=== PATIENT | female | born 1970 | race Caucasian/White ===

== ENCOUNTER 2016-09-13 14:23 | Emergency (ER) | payer BC ==
--- NOTE | 2016-09-13 14:42 | ERNOTE ---
Psychological HPI - General Chief Complaint: Psychiatric Problem - Immun/Allergies/Home Medications Allergies/Adverse Reactions: Allergies codeine Adverse Reaction (Verified 09/13/16 14:46) Home Medications: HOME MEDICATIONS Diphenhydramine HCl [Benadryl] 25 mg PO DAILY 09/13/16 [Last Taken Unknown] Gabapentin [Neurontin] 100 mg PO TID 09/13/16 [Last Taken Unknown] Ibuprofen [Motrin] 800 mg PO QID PRN 09/13/16 [Last Taken Unknown] Sennosides [Senokot] 2 tab PO DAILY 09/13/16 [Last Taken Unknown] oxyCODONE HCL/ACETAMINOPHEN [Percocet 5 MG/325 MG] 1 tab PO Q4H PRN 09/13/16 [ Last Taken Unknown] risperiDONE [Risperidone] 3 mg PO HS 09/13/16 [Last Taken Unknown] - History of Present Illness Narrative: This examiner is unable to elicit a history from this patient as she does not wish to communicate. Patient has a blank stare she sits in the room and when asked why she is here she states that she does not know. I asked how she is feeling she states "I feel fine" that is all the verbal communication the patient allows 4. Patient looks away and does not wish to speak at this time. history per EMS is that patient's family thought she was acting abnormally and called the EMS to bring the patient into the hospital. Recently diagnosed with schizophrenia with suicidal ideations. She been hospitalized at [facility] in [facility]. Time Seen by Provider: 09/13/16 14:32 Review of Systems - Narrative Narrative: Unable to elicit a review of systems this patient chooses not to speak to this examiner at this time. Physical Exam - Physical Exam Narrative: Vitals are stable however she does not allow me to listen to her heart and lungs or do any other exam. General Appearance: Present: other - patient has a flat affect she avoids eye contact she does not speak. Neck: Present: normal inspection Respiratory: Present: no respiratory distress ED Progress - Vital Signs Patient's Vital Signs:: I have reviewed the patient's vital signs. - Progress/Reassessment Chief Complaint: Psychiatric Problem - Transfer of Care Physician Sign Out: Nadege Anders Receiving Physician: Rick Fermin Expected Disposition: Transfer Plan - Plan Plan: This is an extremely challenging case for this examiner as the patient is not cooperating and I cannot do an effective examination. Due to the patient's affect this examiner chose to call the psychiatrist on staff, Dr. Montalvo to come evaluate the patient. Colleen marino presented to the patient's bedside and evaluated the patient and deemed the patient a danger to herself. Patient is amenable to going to an inpatient psychiatric facility which is what the psychiatrist deemed her appropriate for. He does have some symptoms and extrapyramidal symptoms from her risperidone and she will be given Benadryl 25 mg IM for these symptoms all efforts will be focused upon finding a safe placement for this patient Departure Clinical Impression: Schizophrenia Qualifiers: Schizophrenia type: unspecified Qualified Code(s): F20.9 - Schizophrenia, unspecified - Departure Condition: Fair
--- OUTSIDE RECORDS SUMMARY | 2016-09-13 15:12 | XMS REPORT | Continuity of Care Document ---
:1970 Author Organization [facility] Address [address] [place] [id number] Support Name Relationship Address Phone MIRNA MAR DO Unavailable Unavailable Unavailable MARIE MANN Unavailable [facility] [place] [address] Insurance Providers Payer Name Policy Number Subscriber Name Relationship Self Pay In [facility] Yoly Mann 18 Self / Same as Patient Advance Directives Directive Response Recorded Date/Time Do you have Advance Directive No 08/19/16 10:00pm Do you have an Advance Directive? No 08/15/16 7:16pm Chief Complaint and Reason for Visit Chief Complaint Mental Health Reason for Visit Anxiety disorder Problems Active Problems Medical Problem Onset Date Status Alcohol use Unknown Acute Altered mental status Unknown Resolved Anxiety disorder Unknown Acute Elevated CK Unknown Acute Leukocytosis, unspecified Unknown Acute Medications No known medications. Social History Query Response Start Date Stop Date Smoking Status Unknown if ever smoked Hospital Discharge Instructions No hospital discharge instructions. Plan of Care Discharge Date 08/19/16 11:58pm Disposition Home, Self-Care Condition at Discharge Improved Prescriptions See Medication Section Additional Instructions/Education You have an appointment with Bren Michael on 08/29/16 at 1:00 Return to the ED at any time if your symptoms change or worsen Functional Status No functional status results. Allergies, Adverse Reactions, Alerts No known allergies. Immunizations No immunization records. Vital Signs Acute Vital Signs Vital Response Date/Time Blood Pressure 139/67 mm Hg 08/19/2016 10:00pm Pulse Pulse Rate (adult) 76 bpm (60 - 90) 08/19/2016 10:00pm Temperature (C) 36.0 degrees C (36.0 - 37.5) 08/15/2016 12:00pm Weight (Pounds) 155 pounds 08/19/2016 10:00pm Weight (Kilograms) 68.8 kg 08/15/2016 5:00am Weight (Calculated Kg) 70.31 kilograms 08/19/2016 10:00pm Height 5 ft 7.01 in Weight 155 lb Body Mass Index 24.3 kg/m^2 Results Laboratory Results Test Name Result Units Flags Reference Collection Result Comments Date/Time Date/Time White Blood 10.760 K/uL 4.0-11.0 08/15/2016 08/15/2016 Count 4:51am 5:21am Red Blood 3.45 M/uL *L 4.20-5.20 08/15/2016 08/15/2016 Count 4:51am 5:21am Hemoglobin 10.9 g/dL *L 11.6-15.6 08/15/2016 08/15/2016 4:51am 5:21am Hematocrit 32.6 % *L 33.0-44.0 08/15/2016 08/15/2016 4:51am 5:21am Mean 95 fL 80-96 08/15/2016 08/15/2016 Corpuscular 4:51am 5:21am Volume Mean 31.6 pg 27.0-34.0 08/15/2016 08/15/2016 Corpuscular 4:51am 5:21am Hemoglobin Mean 33.4 g/dL 32.0-36.0 08/15/2016 08/15/2016 Corpuscular 4:51am 5:21am Hemoglobin Concent Red Cell 13.8 % 9.0-14.5 08/15/2016 08/15/2016 Distributio 4:51am 5:21am n Width Platelet 223 K/uL 150-450 08/15/2016 08/15/2016 Count 4:51am 5:21am Mean 7.9 fL 7.1-9.4 08/15/2016 08/15/2016 Platelet 4:51am 5:21am Volume Segmented 74.2 % 42.0-79.0 08/15/2016 08/15/2016 Neutrophils 4:51am 5:21am % Segmented 8.0 K/uL 1.8-8.0 08/15/2016 08/15/2016 Neutrophils 4:51am 5:21am # Lymphocytes 18.2 % *L 20.0-42.0 08/15/2016 08/15/2016 % 4:51am 5:21am Lymphocytes 2.0 K/uL 1.2-4.0 08/15/2016 08/15/2016 # 4:51am 5:21am Monocytes % 5.9 % 0.0-12.0 08/15/2016 08/15/2016 4:51am 5:21am Monocytes # 0.6 K/uL 0.0-1.0 08/15/2016 08/15/2016 4:51am 5:21am Eosinophils 1.4 % 0.0-5.0 08/15/2016 08/15/2016 % 4:51am 5:21am Eosinophils 0.2 K/uL 0.0-0.5 08/15/2016 08/15/2016 # 4:51am 5:21am Basophils % 0.4 % 0.0-2.0 08/15/2016 08/15/2016 4:51am 5:21am Basophils # 0.0 K/uL 0.0-0.1 08/15/2016 08/15/2016 4:51am 5:21am Differentia No No 08/15/2016 08/15/2016 l Slide 4:51am 5:21am Review Macrocytosi SLIGHT ABSENT 08/14/2016 08/14/2016 s 2:57pm 3:11pm Prothrombin 14.1 Seconds 11.8-14.5 08/13/2016 08/13/2016 Time 11:02pm 11:36pm INR 1.1 INR unit 0.8-1.2 08/13/2016 08/13/2016 Therapeutic Internation 11:02pm 11:36pm Range: 2.0 - al 4.0 Normalized Ratio CSF CLEAR CLEAR 08/14/2016 08/14/2016 Appearance 3:20pm 4:36pm CSF Color COLORLESS COLORLESS 08/14/2016 08/14/2016 3:20pm 4:36pm CSF NEGATIVE NEG 08/14/2016 08/14/2016 Xanthrochro 3:20pm 4:36pm ganga CSF RBC 5 CELLS/uL *H 0-0 08/14/2016 08/14/2016 3:20pm 4:36pm CSF WBC 1 CELLS/uL 0-5 08/14/2016 08/14/2016 3:20pm 4:36pm CSF 0 % 08/14/2016 08/14/2016 Polynuclear 3:20pm 4:36pm WBCs (%) CSF 100 % 08/14/2016 08/14/2016 Mononuclear 3:20pm 4:36pm WBCs % Blood Gas Arterial 08/14/2016 08/14/2016 Specimen 6:00am 6:11am Type Blood Gas Right Radial 08/14/2016 08/14/2016 Sample Site Artery 6:00am 6:11am Modified Positive 08/14/2016 08/14/2016 Johnathan Test 6:00am 6:11am Oxygen Ventilator 08/14/2016 08/14/2016 Mode: AC Delivery 6:00am 6:11am Tidal Volume: 400 Device PEEP: 5 Press. Support: Rate: 16 Insp. Pressure FiO2 % 30 % 08/14/2016 08/14/2016 6:00am 6:11am Blood Gas 7.386 pH units 7.350-7.450 08/14/2016 08/14/2016 pH 6:00am 6:11am Blood Gas 34.2 mm Hg *L 35.0-45.0 08/14/2016 08/14/2016 PCO2 6:00am 6:11am Blood Gas 91.8 mm Hg 80.0-100.0 08/14/2016 08/14/2016 PO2 6:00am 6:11am Blood Gas 20.1 meq/L *L 22.0-26.0 08/14/2016 08/14/2016 HCO3 6:00am 6:11am Blood Gas 21.1 meq/L *L 23.0-27.0 08/14/2016 08/14/2016 Total CO2 6:00am 6:11am Arterial -4.3 meq/L *L -2.0-2.0 08/14/2016 08/14/2016 Blood Base 6:00am 6:11am Excess Arterial 96.6 % *L 97.0-100.0 08/14/2016 08/14/2016 Bld O2 6:00am 6:11am Saturation (Measur) Arterial 15.5 mL/dL 15.0-23.0 08/14/2016 08/14/2016 Blood 6:00am 6:11am Oxygen Content Oxygen 15.8 mL/dL *L 16.0-24.0 08/14/2016 08/14/2016 Capacity 6:00am 6:11am Sodium 143 mmol/L 132-146 08/15/2016 08/15/2016 Level 4:54am 5:30am Potassium 3.1 mmol/L *L 3.6-5.0 08/15/2016 08/15/2016 Level 4:54am 5:30am Chloride 113 mmol/L *H 99-109 08/15/2016 08/15/2016 Level 4:54am 5:30am Carbon 26 mmol/L 20-31 08/15/2016 08/15/2016 Dioxide 4:54am 5:30am Level Random 76 mg/dL 65-140 08/15/2016 08/15/2016 Glucose 4:54am 5:30am Blood Urea 6 mg/dL *L 9-23 08/15/2016 08/15/2016 Nitrogen 4:54am 5:30am Creatinine 0.7 mg/dL 0.5-1.3 08/15/2016 08/15/2016 4:54am 5:30am Estimated > 60 mL/min >60 08/15/2016 08/15/2016 GFR 4:54am 5:30am (Non-Nancy n Slovenian Estimated > 60 mL/min >60 08/15/2016 08/15/2016 GFR 4:54am 5:30am () Calcium 7.4 mg/dL *L 8.6-10.0 08/15/2016 08/15/2016 Level 4:54am 5:30am Serum 299 mOsm/kg 280-305 08/13/2016 08/13/2016 Osmolality 10:46pm 10:59pm Phosphorus 2.9 mg/dL 2.4-5.1 08/15/2016 08/15/2016 Level 4:54am 5:30am Magnesium 2.0 mg/dL 1.3-2.7 08/15/2016 08/15/2016 Level 4:54am 5:30am Lactic Acid 0.9 mmol/L 0.5-1.9 08/14/2016 08/14/2016 Level 12:05pm 12:31pm Ammonia 55 umol/L 19-60 08/13/2016 08/13/2016 10:46pm 11:02pm Alanine 21 U/L 10-49 08/14/2016 08/14/2016 Aminotransf 4:00am 4:34am erase (ALT/SGPT) Aspartate 23 U/L 0-40 08/14/2016 08/14/2016 Amino 4:00am 4:34am Transf (AST/SGOT) Total 0.2 mg/dL *L 0.3-1.2 08/14/2016 08/14/2016 Bilirubin 4:00am 4:34am Alkaline 61 U/L 45-129 08/14/2016 08/14/2016 Phosphatase 4:00am 4:34am Total 5.0 g/dL *L 6.4-8.3 08/14/2016 08/14/2016 Protein 4:00am 4:34am Albumin 3.5 g/dL 3.2-4.8 08/14/2016 08/14/2016 4:00am 4:34am Creatine 1340 U/L *H 33-211 08/15/2016 08/15/2016 Kinase 4:54am 7:40am Troponin I 0.13 ng/mL *H <0.05 08/14/2016 08/14/2016 Indeterminate Range : 0.05 - 0.77 10:00am 10:30am Suspected AMI: >0.78 Test results may be altered in patients taking high dose biotin supplementation (e.g. ESRD); clinical correlation required. Call [facility] with questions. CSF Total 23.9 mg/dL 12-60 08/14/2016 08/14/2016 Floor notification that test(s) are complete called to Protein 3:20pm 4:35pm SHARLENE/ICU at 1635 08/14/16 by CHING RAMIREZ. CSF Glucose 64 mg/dL 40-80 08/14/2016 08/14/2016 3:20pm 4:35pm Thyroid 1.525 mcIU/mL 0.55-4.78 08/13/2016 08/14/2016 Stimulating 10:46pm 2:04am Hormone 3rd Gen Cortisol 30.6 mcg/dL *H 3.1-22.4 08/13/2016 08/14/2016 AM (7-9 AM) serum cortisol: 7.0 - 25.0 ug/dL 10:46pm 4:21am PM (3-5 PM) serum cortisol: 2.0 - 9.0 ug/dL Hepatitis A NONREACTIVE NONREACTIVE 08/13/2016 08/14/2016 This assay is intended for use as an aid in the diagnosis of IgM 10:46pm 3:09am acute or recent infection with Hepatitis A virus. Positive Antibody HAV IgM testing, in the absence of clinical history suggestive of exposure, should be interpreted with caution. This assay does not measure HAV IgG and therefore cannot be used to determine immune status to HAV. A negative test result does not exclude the possibility of exposure to HAV. Test results may be altered in patients taking high dose biotin supplementation (e.g. ESRD); clinical correlation required. Call [facility] with questions. Hepatitis B NONREACTIVE NONREACTIVE 08/13/2016 08/14/2016 Surface 10:46pm 2:41am Antigen Hepatitis B NONREACTIVE NONREACTIVE 08/13/2016 08/14/2016 Core IgM 10:46pm 3:09am Antibody Hepatitis C NONREACTIVE NONREACTIVE 08/13/2016 08/14/2016 Antibody 10:46pm 3:09am HIV (1&2) Nonreactive Nonreactive 08/13/2016 08/14/2016 Result is negative for the presence of HIV-1 p24 antigen and Ab and P24 10:46pm 3:09am antibodies to HIV-1 (including group "O") and HIV-2, but Ag, 4th does not exclude the possibility of exposure to, or Gener infection with HIV. Testing was performed on the Siemens Advia Centaur XP, HIV AG/AB Combo Assay. Urine CATHETER 08/13/2016 08/13/2016 Source 11:03pm 11:35pm Urine Color YELLOW YELLOW 08/13/2016 08/13/2016 11:03pm 11:35pm Urine SL CLOUDY *H CLEAR 08/13/2016 08/13/2016 Appearance 11:03pm 11:35pm Urine NEGATIVE mg/dL NEGATIVE 08/13/2016 08/13/2016 Glucose 11:03pm 11:35pm (UA) Urine NEGATIVE NEGATIVE 08/13/2016 08/13/2016 Bilirubin 11:03pm 11:35pm Urine NEGATIVE mg/dL NEGATIVE 08/13/2016 08/13/2016 Ketones 11:03pm 11:35pm Urine >=1.030 1.001-1.035 08/13/2016 08/13/2016 Specific 11:03pm 11:35pm Warren Urine Blood TRACE-INTA *H NEGATIVE 08/13/2016 08/13/2016 11:03pm 11:35pm Urine pH 5.5 pH unit 5.0 - 8.0 08/13/2016 08/13/2016 11:03pm 11:35pm Urine TRACE mg/dL *H NEGATIVE 08/13/2016 08/13/2016 Protein 11:03pm 11:35pm Urine 0.2 mg/dL 0.1 -1.0 08/13/2016 08/13/2016 Urobilinoge 11:03pm 11:35pm n Urine NEGATIVE NEGATIVE 08/13/2016 08/13/2016 Nitrite 11:03pm 11:35pm Urine NEGATIVE NEGATIVE 08/13/2016 08/13/2016 Leukocyte 11:03pm 11:35pm Esterase Microscopic YES 08/13/2016 08/13/2016 Urinalysis 11:03pm 11:35pm (T) Urine RBC 2-5 /HPF *H 0-2 08/13/2016 08/13/2016 11:03pm 11:35pm Urine NEGATIVE /HPF NEGATIVE 08/13/2016 08/13/2016 Dysmorphic 11:03pm 11:35pm Red Blood Cells Urine FEW /HPF NEG - FEW 08/13/2016 08/13/2016 Bacteria 11:03pm 11:35pm Urine Mucus FEW /HPF NEG - FEW 08/13/2016 08/13/2016 11:03pm 11:35pm Urine MODERATE /HPF *H NEG - FEW 08/13/2016 08/13/2016 Squamous 11:03pm 11:35pm Epithelial Cells Urine PRESENT /HPF *H ABSENT 08/13/2016 08/13/2016 Amorphous 11:03pm 11:35pm Sediment Urine 2-5 /LPF *H NEGATIVE 08/13/2016 08/13/2016 Hyaline 11:03pm 11:35pm Casts Urine NO 08/13/2016 08/13/2016 Culture 11:03pm 11:35pm Indicated Acetaminoph < 10.0 mcg/mL *L 10.0-20.0 08/14/2016 08/14/2016 en Level 4:00am 7:22am Acetaminoph Unknown 08/14/2016 08/14/2016 en Last 4:00am 6:22am Dose Date Acetaminoph Unknown 08/14/2016 08/14/2016 en Last 4:00am 6:22am Dose Time Salicylates 1.0 mg/dL 1.0-29.0 08/14/2016 08/14/2016 Level 4:00am 7:22am Salicylate Unknown 08/14/2016 08/14/2016 Last Dose 4:00am 6:22am Date Salicylate Unknown 08/14/2016 08/14/2016 Last Dose 4:00am 6:22am Time Ethyl 12 mg/dL *H <10 08/13/2016 08/13/2016 Alcohol 10:46pm 11:02pm Level U EDDP NEGATIVE <1000 ng/mL 08/13/2016 08/13/2016 (Methadone 11:03pm 11:40pm Metabolite) Scrn Adulterants 266.6 mg/dL 08/13/2016 08/14/2016 Urine 11:03pm 12:32am Creatinine Microbiology Results Procedure Source Result Collection Result Date/Time Date/Time Blood Culture Blood, Right NO GROWTH 5 08/13/2016 08/19/2016 Antecubital DAYS. 10:46pm 12:46am Blood Culture Blood, Left Hand NO GROWTH 5 08/14/2016 3:50am 08/19/2016 DAYS. 6:11am Aerobic Culture Body Fluid, NO GROWTH 5 08/14/2016 3:20pm 08/19/2016 Cerebrospinal Fluid DAYS. 6:55am Meningitis/Enceph Cerebrospinal Fluid NO TARGETED 08/14/2016 3:20pm 2016 alitis Panel PATHOGEN DNA 7:40pm (PCR) DETECTED BY PCR Procedures Procedure Status Date Provider(s) Computed tomography of head without contrast Active 08/13/16 ORLIN ANDREW DO XR chest 1V portable Active 08/13/16 ORLIN ANDREW DO XR chest 1V portable Active 08/14/16 ASHER ROBERTS DO Computed tomography of abdomen and pelvis with Active 08/14/16 LOGAN STEPHENS DO contrast Encounters Encounter Location Arrival/Admit Date Discharge/Depart Date Attending Provider Departed [facility] 08/19/16 10:14pm 08/19/16 11:58pm MIRNA [facility] DO Discharged [facility] 08/14/16 10:13am 08/15/16 2:34pm [facility] GERARDO Fam DO Recent Diagnosis
--- OUTSIDE RECORDS SUMMARY | 2016-09-13 15:12 | XMS REPORT | Continuity of Care Document ---
:1970 Author Organization [facility] ([facility]) Address [address] [address] Phone [phone] Care Team Providers Name Role Phone Provider, No-Primary Care Primary Care Provider Unavailable Source Comments This disclosure is being made pursuant to the Care Everywhere program, applicable federal and state laws, and may not contain all informaitonavailable regarding this patient.[facility] ([facility]) Active Allergies and Adverse Reactions Allergen Noted Date Severity Reactions Comments Codeine 01/10/2014 Hypotension Hydrocodone 05/17/2014 Nausea & Vomiting Current Medications Prescription Sig. Disp. 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: Parasites Hx of gastric ulcer 01/10/2014 Social History Tobacco Use Types Packs/Day Years Used Date Current Every Day Smoker Cigarettes 1 20 Smokeless Tobacco: Never Used Alcohol Use Drinks/Week oz/Week Comments No Last Filed Vital Signs Vital Sign Reading Time Taken Blood Pressure 124/72 08/30/2015 4:49 PM CDT Pulse 75 08/30/2015 4:49 PM CDT Temperature 36.3 C (97.3 F) 08/30/2015 4:49 PM CDT Respiratory Rate 16 01/04/2014 2:34 PM CDT Height 1.676 m (5' 5.98") 02/03/2015 12:50 PM CDT Weight 65.772 kg (145 lb) 02/03/2015 12:48 PM CDT Body Mass Index 23.41 02/03/2015 12:48 PM CDT Oxygen Saturation 100% 01/04/2014 2:34 PM CDT Plan of Care Health Maintenance Due Date Last Done Comments Hepatitis B Vaccine (1 of 3 - Primary Series) 1970 Tdap Vaccine 08/17/1982 Lipid Disorder Screening 08/17/1989 MMR Vaccine 08/17/1989 Td Vaccine 08/17/1989 Pneumococcal Vaccine (1 of 1 - PPSV23) 08/17/1990 Cervical Cancer Screening 08/17/2001 Mammogram 2011 Influenza Vaccine: Seasonal (Season Ended) 2016 Results from Last 3 Months Not on file
--- OUTSIDE RECORDS SUMMARY | 2016-09-13 15:12 | XMS REPORT | Continuity of Care Document ---
:1970 Author Organization [facility] Address [address] [address] Support Name Relationship Address Phone DEIRDREARLETTE ASHER Levi DO Unavailable Unavailable Unavailable ASHER ROBERTS DO Unavailable [address] Unavailable [facility] [place] [address] LORRIEORLIN DO Unavailable [address] Unavailable [facility] [place] [address] GERARDO FARLEY DO Unavailable [address] Unavailable ASHLEE [place] [address] LOGAN STEPHENS DO Unavailable Unavailable Unavailable MARIE MANN [place] [address] Insurance Providers Payer Name Policy Number Subscriber Name Relationship Self Pay In [facility] Yoly Mann 19 Self / Same as Patient Advance Directives Directive Response Recorded Date/Time Code Status FULL CODE 08/14/16 12:25am Do you have Advance Directive No 08/14/16 1:19am Chief Complaint and Reason for Visit Chief Complaint AMS Reason for Visit Alcohol use Altered mental status Elevated CK Leukocytosis, unspecified Problems Active Problems Medical Problem Onset Date Status Alcohol use Unknown Acute Altered mental status Unknown Resolved Elevated CK Unknown Acute Leukocytosis, unspecified Unknown Acute Medications No known medications. Social History Query Response Start Date Stop Date Smoking Status Unknown if ever smoked Hospital Discharge Instructions Discharge: Physican Discharge Order Discharge Patient to: Location: HOME Prescription(s) Prescriptions upon discharge: No prescription necessary Medication Returned Home medication(s) returned: N/A Appointments,services, info: Gift Manager Used for discharge Gift Manager used for discharge: No Appointment Date(s)/Time(s) Appt. with PCP (within 7 days): Follow up with PCP within 1 week. Other Appointments: Follow up in 7 days for group session per psychiatry. Spoke with agents' records clerk who will set this up. Other Appointments: Follow up in 7 days for group session per psychiatry. Spoke with agents' records clerk who will set this up. Activity/Restrictions: Specific activity/restrictions Activity after discharge: As tolerated Home Health Referral: Home Health Referral Info. Home Health Services Referral: N/A Care Plan: Care Plan Goals& Instructions Nursing Goals: Psych evaluation Patient Portal information Patient provided info to access portal: No No Email on record: Pt. has no email address Diet, Care Plan,& Information Discharge Diet: General Activity after discharge: As tolerated Care Plan Problem You were admitted for confusion and combative behavior. Your confusion could possibly be due to an underlying psychiatric condition and we would encourage you to follow up with your primary care doctor within 1 week. You were seen by a psychiatrist in the hospital and advised to come back in 7 days for group session. You will be set up for an appointment and given a date to come back for follow up. You can resume your home medications. You are advised to stay with your parents for the next few days. Care Plan Goal See above Care Plan Instructions See above If concerns please call Please bring these discharge instructions with you to all follow-up appointments *If you have any questions regarding your discharge instructions or discharge medications please contact your doctor or the location from where you were discharged* Intensive Care Unit: Medical/ Surgical Unit : [facility] / Nursery: Inpatient Mental Health / Behavioral Health: Emergency Department: [facility]: Operating Room / Post Anesthesia Care Unit: Oncology Clinic: [phone] _ Appointment Reminder: Out of fairness to other patients, those who arrive more than 15 minutes late may be asked to reschedule. If you have questions regarding your insurance coverage or do not have insurance, please visit our Patient Financial Counselors Office (PFCO) prior to your visit, failure to do so may result in your appointment being cancelled and rescheduled. *Please utilize this information to access [facility] Patient Portal* How to Access [facility] Patient Portal: Visit our website: [email or web address] Click on the'Patient Portal' link Complete your enrollment by using the following information: Name (Last Name, Full First Name) Date of e-Mail address that has been provided to [facility] and associated to your medical record Medical Record Number ([id number]) Upon this completion, access your e-mail for your one-time username, password, and link to the Portal. From the e-mail, click on the link to the Portal. Enter your security question. Click Sign In Enter your new username and password and begin exploring your Portal. If you have any questions please call your primary health care provider/professional. Plan of Care Discharge Date 08/15/16 2:34pm Disposition Home, Self-Care Instructions/Education Provided Altered Mental Status (ED) Prescriptions See Medication Section Care Plan and Goals See Discharge Instructions Section Functional Status Query Response Date Recorded Patient Orientation Person August 15, 2016 2:[address] Comprehension Ability Understands Concepts August 15, 2016 12:00pm Speech Pattern Appropriate August 15, 2016 2:35pm Patient Behavior Cooperative August 15, 2016 2:35pm Suspicious Mood Description Calm August 15, 2016 2:35pm Allergies, Adverse Reactions, Alerts No known allergies. Immunizations No immunization records. Vital Signs Acute Vital Signs Vital Response Date/Time Blood Pressure 108/92 mm Hg 08/15/2016 12:00pm Pulse Pulse Rate (adult) 70 bpm (60 - 90) 08/15/2016 12:00pm Temperature (C) 36.0 degrees C (36.0 - 37.5) 08/15/2016 12:00pm Weight (Pounds) 155 pounds 08/14/2016 3:00am Weight (Kilograms) 68.8 kg 08/15/2016 5:00am Weight (Calculated Kg) 70.845469 kilograms 08/14/2016 3:00am Height 5 ft 7.01 in Weight 151 lb Body Mass Index 23.0 kg/m^2 Results Laboratory Results Test Name Result [...] 08/15/2016 08/15/2016 GFR 4:54am 5:30am (Non-Nancy n Ghanaian Estimated > 60 mL/min >60 08/15/2016 08/15/2016 [...] >=1.030 1.001-1.035 08/13/2016 08/13/2016 Specific 11:03pm 11:35pm [place] Urine Blood TRACE-INTA *H NEGATIVE 08/13/2016 08/13/2016 [...] Procedure Source Result Collection Result Date/Time Date/Time Meningitis/Enceph Cerebrospinal Fluid NO TARGETED 08/14/2016 3:20pm 2016 alitis Panel PATHOGEN DNA 7:40pm (PCR) DETECTED BY PCR [place] [id number] Discharge Instructions Patient Name: YOLY MANN Date of Admission: 08/14/16 : 1970 Medical Rec #: [id number] Instructions General Diet after discharge Discharge Diet: General Appointments upon discharge Appt. with PCP (within 7 days): Follow up with PCP within 1 week. Other Appointments: Follow up in 7 days for group session per psychiatry. Spoke with agents' records clerk who will set this up. Home Health Referral Home Health Services Referral: N/A Activity/Restrictions Activity after discharge: As tolerated Stroke/Afib/flutter/LDL D/C with Dx of: N/A If applicable, document below If applicable, document appropriate Medical Reason(s) for NOT ordering at Discharge or Pt Refusal. Care Plan Care Plan Problem You were admitted for confusion and combative behavior. Your confusion could possibly be due to an underlying psychiatric condition and we would encourage you to follow up with your primary care doctor within 1 week. You were seen by a psychiatrist in the hospital and advised to come back in 7 days for group session. You will be set up for an appointment and given a date to come back for follow up. You can resume your home medications. You are advised to stay with your parents for the next few days. Care Plan Goal See above Care Plan Instructions See above Concerns or Questions Call If concerns please call Please bring these discharge instructions with you to all follow-up appointments *If you have any questions regarding your discharge instructions or discharge medications please contact your doctor or the location from where you were discharged* Intensive Care Unit: Medical/ Surgical Unit : [facility] / Nursery: Inpatient Mental Health / Behavioral Health: Emergency Department: [facility]: Operating Room / Post Anesthesia Care Unit: Oncology Clinic: [phone] _ Appointment Reminder: Out of fairness to other patients, those who arrive more than 15 minutes late may be asked to reschedule. If you have questions regarding your insurance coverage or do not have insurance, please visit our Patient Financial Counselors Office (PFCO) prior to your visit , failure to do so may result in your appointment being cancelled and rescheduled. *Please utilize this information to access [facility] Patient Portal* How to Access [facility] Patient Portal: Visit our website: [email or web address] Click on the'Patient Portal' link Complete your enrollment by using the following information: Name (Last Name, Full First Name) Date of e-Mail address that has been provided to [facility] and associated to your medical record Medical Record Number ([id number]) Upon this completion, access your e-mail for your one-time username, password, and link to the Portal. From the e-mail, click on the link to the Portal. Enter your security question. Click Sign In Enter your new username and password and begin exploring your Portal. If you have any questions please call your primary health care provider/ professional. Ready for DC-Queue Nursing Ready for Discharge: YES SHIRA DÍAZ MD August 15, 2016 12:19 Provider Signatures: <Electronically signed by SHIRA DÍAZ MD>08/15/16 1219 <Electronically signed by GERARDO FARLEY DO>08/15/16 1332 <Electronically signed by GERARDO FARLEY DO>08/15/16 1332 Procedures Procedure Status Date Provider(s) Computed tomography of head without contrast Active 08/13/16 ORLIN ANDREW DO XR chest 1V portable Active 08/13/16 ORLIN ANDREW DO XR chest 1V portable Active 08/14/16 ASHER ROBERTS DO Computed tomography of abdomen and pelvis with Active 08/14/16 LOGAN STEPHENS DO contrast Encounters Encounter Location Arrival/Admit Date Discharge/Depart Date Attending Provider Discharged [facility] 08/14/16 10:13am [facility]15[facility]16 [facility] GERARDO Fam DO Recent Diagnosis Alcohol use Altered mental status Elevated CK Leukocytosis, unspecified
--- OUTSIDE RECORDS SUMMARY | 2016-09-13 15:12 | XMS REPORT | Continuity of Care Document ---
:1970 Author Organization [facility] Address [address] [place] [address] Support Name Relationship Address Phone LILLIAM MCINTYRE MD Unavailable Unavailable Unavailable RAVINDRA AGUILAR MD Unavailable Unavailable Unavailable NETO ROSA MD Unavailable Unavailable Unavailable EMANUEL GRAY MD Unavailable [address] [place] [address] ANTONI JARVIS DO Unavailable Unavailable Unavailable MRAIE MANN [place] [address] Insurance Providers Payer Name Policy Number Subscriber Name Relationship [facility] Other [facility] [id number] Yoly Mann 18 Self / Same as Patient Advance Directives Directive Response Recorded Date/Time Do you have Advance Directive No 08/21/16 6:30pm Do you have an Advance Directive? No 08/15/16 7:16pm Chief Complaint and Reason for Visit Chief Complaint PSYCHOSIS/ALTERED MS Reason for Visit Febrile illness Leukocytosis, unspecified Psychosis Suicide ideation Problems Active Problems Medical Problem Onset Date Status Alcohol use Unknown Acute Altered mental status Unknown Resolved Anxiety disorder Unknown Acute Elevated CK Unknown Acute Febrile illness Unknown Acute Leukocytosis, unspecified Unknown Acute Psychosis Unknown Acute Suicide ideation Unknown Acute Medications Current Home Medications Medication Dose Units Route Directions Days/Qty Instructions Start Date Diphenhydramine 50 Mg Oral Bedtime for 30 over the 08/28/16 Hcl 50 Mg Sleep/Eps counter Prevention medication Gabapentin 100 Mg 100 Mg Oral Three Times A 90 08/28/16 Day for Neuropathic Pain Risperidone 3 Mg 3 Mg Oral Bedtime for 14 take 1 tab at 08/28/16 Psychosis hs x 2 weeks then stop. Must continue Risperdal Consta injections. Risperidone 37.5 37.5 Mg Intramusc Every 2 Weeks 1 08/28/16 Mg/2 Ml/Syr for Psychosis Social History Social History Problem Response Recorded Date/Time Alcohol Use occasionally 08/22/2016 9:33am Drug Use None 08/22/2016 9:33am Relationship Single 08/22/2016 9:33am Query Response Start Date Stop Date Smoking Status Current Every day smoker Hospital Discharge Instructions Discharge: Physican Discharge Order Discharge Patient to: Location: HOME Prescription(s) Prescriptions upon discharge: Take script(s)to pharmacy Medication Returned Home medication(s) returned: N/A Appointments,services, info: Personal Care Aide Used for discharge Personal Care Aide used for discharge: No Appointment Date(s)/Time(s) Appt. with PCP (within 7 days): Friday08/05/16 at 1:15 PM with Cecy Almaguer Other Appointments: Discuss lung nodules with primary care provider. Will need follow up chest CT in 3 months, 9 months and 24 months. May continue Risperdal consta injections ( 37.5 mg every 2 weeks) through Primary Care in [place] if you are unable return to [place]. Mental Health Provider Appt: 08/29/16 at 1:00 PM with Bren Pickard [facility] Injection Clinic Appt: [facility] [place] every 2 weeks start 09/10/16 walk in appt Activity/Restrictions: Specific activity/restrictions Activity after discharge: as tolerated Home Health Referral: Home Health Referral Info. Home Health Services Referral: No Care Plan: Care Plan Goals& Instructions Short Term Goal 1: 08/21/16-Patient will be able to verbalize understanding of illness and need to comply with treatment by 08/31/16. CONTINUE THROUGH DISCHARGE. Finisher Machine Goal 1: 08/21/16-Patient will be able to will be able to verbalize understanding that there is a difference between reality and nonreality by discharge. Patient Portal information Patient provided info to access portal: Yes No Email on record: Pt. has no email address Diet, Care Plan,& Information August 21, 2016 at 12:20 Discharge to: Family Members Home (in [place]) Discharge Diet: General Numbers& Info Supporting Care Plan information: Do not consume alcohol or illicit drugs and take medications only as prescribed After discharge contact numbers 1. Mobile Crisis ([facility]): 911 2. First Call for Help: 211 ([place], [place], [place], [facility]) 3. [facility] Crisis Team: 4. Adult Unit: 5. [facility] Pharmacy: 6. Injection/Medication Clinic: 7. Outpatient Behavioral Health: [phone] Appointment Reminder: Out of fairness to other patients, those who arrive more than 15 minutes late may be asked to reschedule. If you have questions regarding your insurance coverage or do not have insurance, please visit our Patient Financial Counselors Office (PFCO) prior to your visit, failure to do so may result in your appointment being cancelled and rescheduled. *How to Access [facility] Patient Portal* Visit our website: [email or web address] Click on the'Patient Portal' link Complete your enrollment using the following information Name (Last Name, Full First Name) Date of e-Mail address Medical Record Number ([id number]) Upon this completion, access your e-mail for your one-time username, password, and link to the Portal From the e-mail, click on the link to the Portal Enter your one-time username, password from the e-mail, and choose your security question. Click Sign In Enter your new username and password and begin exploring your Portal. Activity after discharge: as tolerated Care Plan Problem unspecified schizophrenia spectrum and other psychotic disorder. Care Plan Goal Improved mood, no hallucination no delusions. Care Plan Instructions continue medications as prescribed and keep scheduled appointments. Rhogam administration: Nursing Queries Rhogam Administered: No Plan of Care Discharge Date 08/29/16 8:41am Disposition Home, Self-Care Instructions/Education Provided Brief Psychotic Disorder (DC) Prescriptions See Medication Section Care Plan and Goals See Discharge Instructions Section Functional Status Query Response Date Recorded Oral Care Ability Independent August 21, 2016 6:30pm Bathing Ability Independent August 29, 2016 11:56am Upper Body Dressing Ability Independent August 21, 2016 6:30pm Lower Body Dressing Ability Independent August 21, 2016 6:30pm Eating (Feeding) Ability Independent August 28, 2016 3:02pm Toileting Ability Independent August 21, 2016 6:30pm Patient Orientation Person August 29, 2016 11:56am Comprehension Ability Understands Concepts August 28, 2016 8:18pm Memory Description Recent Impaired August 29, 2016 11:56am Speech Pattern Clear August 29, 2016 11:56am Patient Behavior Guarded August 29, 2016 11:56am Mood Description Calm August 29, 2016 11:56am Depressed Flat Withdrawn Allergies, Adverse Reactions, Alerts No known allergies. Immunizations No immunization records. Vital Signs Acute Vital Signs Vital Response Date/Time Blood Pressure 94/55 mm Hg 08/29/2016 6:10am Pulse Pulse Rate (adult) 75 bpm (60 - 90) 08/29/2016 6:10am Temperature (C) 36.5 degrees C (36.0 - 37.5) 08/29/2016 6:10am Weight (Pounds) 136 pounds 08/21/2016 6:30pm Weight (Kilograms) 68.8 kg 08/15/2016 5:00am Weight (Calculated Kg) 61.889174 kilograms 08/21/2016 6:30pm Height 5 ft 6 in Weight 136 lb Body Mass Index 22.0 kg/m^2 Results Laboratory Results Test Name Result [...] 08/15/2016 08/15/2016 GFR 4:54am 5:30am (Non-Nancy n Colombian Estimated > 60 mL/min >60 08/15/2016 08/15/2016 [...] >=1.030 1.001-1.035 08/13/2016 08/13/2016 Specific 11:03pm 11:35pm [place] Urine Blood TRACE-INTA *H NEGATIVE 08/13/2016 08/13/2016 [...] mg/dL 08/13/2016 08/14/2016 Urine 11:03pm 12:32am Creatinine Miscellaneo Comprehensive Panel 08/14/2016 08/22/2016 us Test Result: Gfynpaoaj=184 ng/mg creatinine 4:00am 4:46pm Result Midazolam=72 ng/mg creatinine Other drugs present Diphenhydramine, Doxylamine, Dextromethorphan, Dextrorphan/Levorphanol Performing Lab: [facility] Source: Urine Pending Laboratory Results Test Name Collection Date/Time Microbiology Results Procedure Source Result Collection Result [...] PATHOGEN DNA 7:40pm (PCR) DETECTED BY PCR Pending Microbiology Results Procedure Source Collection Date/Time [facility] [address] [place], [place] [address] Discharge Instructions Patient Name: YOLY MANN Date of Admission: 08/21/16 : 1970 Medical Rec #: [id number] Instructions [facility] Admission Date August 21, 2016 at 12:20 Discharge to Discharge to: Family Members Home (in [place]) Diet after Discharge Discharge Diet: General Appointment/Follow up Appt. with PCP: Friday08/05/16 at 1:15 PM with Cecy Almaguer Mental Health Provider Appt: 08/29/16 at 1:00 PM with Bren Pickard [facility] Injection Clinic Appt: [facility] [place] every 2 weeks start 09/10/16 walk in appt Other Appointments: Discuss lung nodules with primary care provider. Will need follow up chest CT in 3 months, 9 months and 24 months. May continue Risperdal consta injections ( 37.5 mg every 2 weeks) through Primary Care in [place] if you are unable return to [place]. Numbers& Info Supporting Care Plan information: Do not consume alcohol or illicit drugs and take medications only as prescribed After discharge contact numbers 1. Mobile Crisis ([facility]): 911 2. First Call for Help: 211 ([facility], [place], [facility]) 3. [facility] Crisis Team: 4. Adult Unit: 5. [facility] Pharmacy: 6. Injection/Medication Clinic: 7. Outpatient Behavioral Health: [phone] Appointment Reminder: Out of fairness to other patients, those who arrive more than 15 minutes late may be asked to reschedule. If you have questions regarding your insurance coverage or do not have insurance, please visit our Patient Financial Counselors Office (PFCO) prior to your visit , failure to do so may result in your appointment being cancelled and rescheduled. *How to Access [facility] Patient Portal* Visit our website: [email or web address] Click on the'Patient Portal' link Complete your enrollment using the following information Name (Last Name, Full First Name) Date of e-Mail address Medical Record Number ([id number]) Upon this completion, access your e-mail for your one-time username, password, and link to the Portal From the e-mail, click on the link to the Portal Enter your one-time username, password from the e-mail, and choose your security question. Click Sign In Enter your new username and password and begin exploring your Portal. Activity/Restrictions Activity after discharge: as tolerated Care Plan Care Plan Problem unspecified schizophrenia spectrum and other psychotic disorder. Care Plan Goal Improved mood, no hallucination no delusions. Care Plan Instructions continue medications as prescribed and keep scheduled appointments. Ready for Discharge: YES KENYON CASSIDY August 28, 2016 14:26 Provider Signatures: <Electronically signed by LAURA COHEN>08/29/16 0754 Procedures Procedure Status Date Provider(s) SPINAL FLUID TAP DIAGNOSTIC Completed 08/14/16 GERARDO FARLEY DO DRAINAGE OF SPINAL CANAL, PERCUTANEOUS Completed 08/14/16 GERARDO FARLEY DO APPROACH, DIAGNOSTIC Computed tomography of head without contrast Active 08/13/16 ORLIN ANDREW DO XR chest 1V portable Active 08/13/16 ORLIN ANDREW DO XR chest 1V portable Active 08/14/16 ASHER ROBERTS DO Computed tomography of abdomen and pelvis Active 08/14/16 LOGAN STEPHENS DO with contrast X-ray of chest, PA and lateral views Active 08/22/16 THONY ARITA-C X-ray of chest, PA and lateral views Active 08/27/[address] chest without contrast Active 08/27/16 KENYON CASSIDY Encounters Encounter Location Arrival/Admit Date Discharge/Depart Date Attending Provider Discharged [facility] 08/21/16 12:20pm 08/29/16 8:41am LILLIAM MCINTYRE [facility] Registered [facility] 08/20/16 8:00am [facility] NER[facility]SA Reese Departed [facility] 08/19/16 10:14pm 08/19/16 11:58pm MIRNA MAR [facility] DO Discharged [facility] 08/14/16 10:13am 08/15[facility]16 2[facility] Recent Diagnosis Febrile illness Leukocytosis, unspecified Psychosis Suicide ideation
[2016-09-13] MEDS ORDERED: diphenhydrAMINE HCL 50 MG/ML VIAL IM ONE ×2 (16:23→20:41)
[2016-09-13 16:55] LABS: Hematocrit 40.6 % (37.0-47.0); Hemoglobin 13.8 gm/dL (12.5-16.0); Mean Cell Volume 93.3 fl (78-100); Mean Corpuscular Hemoglobin 31.7 pg (27-31); Mean Platelet Volume 9.6 fl (6.0-9.5); Neutrophil # 9.8 K/mm3 (1.3-6.0); Neutrophil % 81.3 % (42-75.0); Platelet Count 359 K/mm3 (150-450); Red Blood Count 4.35 M/mm3 (4.2-5.4); Red Cell Distribution Width 12.7 % (11.5-14.0); White Blood Count 12.1 K/mm3 (4.0-10.5)
[2016-09-13 17:15] LABS: ALT 24 U/L (19-67); AST 13 U/L (0-48); Albumin * 4.5 gm/dl (3.4-5.0); Alkaline Phosphatase * 82 U/L (50-170); Anion Gap 15.8 mmol/L (6.8-13.8); BUN/Creatinine Ratio 12.1 (9.0-21.6); Bilirubin, Total 0.4 mg/dL (0.0-1.1); Blood Urea Nitrogen 12 mg/dL (3-23); Ca. Corrected For Albumin 8.9 mg/dL (8.4-10.2); Calcium * 9.6 mg/dL (7.9-10.9); Carbon Dioxide 27.2 mmol/L (24-32.6); Chloride 101 mmol/L (97-106); Glucose * 119 mg/dL (70-110); Salicylate Less than 2.8 mg/dL (2.8-20.0); Sodium 140 mmol/L (132-142); TSH * 1.323 uIU/mL (0.358-3.74); Total Protein 8.5 gm/dL (6.2-8.2)
[2016-09-13] MEDS ORDERED: diphenhydrAMINE HCL 50 MG/ML VIAL ONE ×2 (17:15→20:47)
[2016-09-13 17:24] LABS: Urine Appearance Clear; Urine Bacteria 2+; Urine Bilirubin Negative (NEGATIVE); Urine Blood Negative /ul (NEGATIVE); Urine Color Yellow; Urine Ketone Negative (NEGATIVE); Urine Nitrite Negative (NEGATIVE); Urine Protein Negative (NEGATIVE); Urine RBC None Seen /hpf (0-5); Urine Specific Gravity 1.025 SP.GR. (1.005-1.010); Urine Urobilinogen Normal (NORMAL); Urine WBC None Seen /hpf (0-5); Urine pH 5.5 pH (5.0-7.0)
[2016-09-13 17:30] LABS: Cocaine Ur Negative (NEGATIVE); Urine Barbiturate Negative (NEGATIVE); Urine Benzodiazepines Negative (NEGATIVE); Urine Opiates Negative (NEGATIVE); Urine PCP Negative (NEGATIVE); Urine THC Negative (NEGATIVE)
[2016-09-13] MEDS ORDERED: GABAPENTIN 100 MG CAPSULE PO ONE (18:11)
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
[2016-09-13] MEDS ORDERED: ZIPRASIDONE MESYLATE 20 MG VIAL IM ONE (20:37)
[2016-09-13 22:32] VITALS: BP 123/73
== END 2016-09-13 23:02 | disposition short-term general hospital (02) ==
LOC: ER 14:23
DX: F20.9 Schizophrenia, unspecified (principal)
CPT/HCPCS: 36415; 80053; 80307; 81001; 84443; 85025; 96372; 99283; G0480; G0481